=== PATIENT | male | born 1940 | race Hispanic/Latino ===

== ENCOUNTER 2019-03-28 12:21 | Emergency (ER) | payer MEDICARE ==
[~2019-03-28] VITALS: Ht 167.6 cm; Wt 79.4 kg
[~2019-03-28 12:21] MED LIST: ASPIRIN PO; ATENOLOL25 MG PO; ATORVASTATIN CA40 MG PO; RAMIPRIL PO
--- NOTE | 2019-03-28 12:28 | NUR ---
c-collar placed on pt. speaking in full complete sentences and able to make needs known. bleeding controlled
[2019-03-28] MEDS ORDERED: TETANUS/DIPHTHERIA TOX ADULT 0.5 ML SYR IM ONE (12:30)
--- NOTE | 2019-03-28 13:34 | Diagnostic Imaging Report ---
CT BRAIN WO HISTORY: Fall COMPARISON: None. TECHNIQUE: Noncontrast axial scans were obtained from skull base to the vertex. Coronal and sagittal reconstructions obtained from the axial data. One or more of the following dose reduction techniques were used: Automated exposure control, adjustment of the mA and/or kV according to patient size, and/or utilization of iterative reconstruction technique. DISCUSSION: Scalp/Skull: Right frontal scalp/periorbital hematoma is present. No calvarial fracture is seen. Brain sulci: Mildly prominent. Ventricles: Compensatory dilatation. Extra-axial spaces: No masses or fluid collections. Carotid siphon calcifications are present. Parenchyma: Mild bilateral deep white matter hypodensity is likely chronic microvascular ischemic change. Otherwise, no masses, hemorrhage, or large vascular territory acute infarct. Dural sinuses: No abnormal densities. Sellar/Suprasellar region: Intact. Skull base: Intact. Incidental findings: None. IMPRESSION: 1. No acute intracranial abnormalities. 2. Mild supratentorial chronic microvascular ischemic change. Mild generalized cerebral volume loss. Signed by: Dr. Jordan Scott M.D. on 03/28/2019 1:31 PM
--- NOTE | 2019-03-28 13:39 | Diagnostic Imaging Report ---
CT CERVICAL SPINE WO HISTORY: Fall COMPARISON: Concurrent head CT TECHNIQUE: CT of the cervical spine without contrast. Sagittal and coronal reformations were created. One or more of the following dose reduction techniques were used: Automated exposure control, adjustment of the mA and/or kV according to patient size, and/or utilization of iterative reconstruction technique. FINDINGS: Cervical lordosis is straightened. There is no scoliosis or subluxation. No fractures, compression deformity, or destructive osseous lesions are seen. The craniocervical junction is intact. No gross spinal canal masses are seen. The paravertebral and paraspinal soft tissues are unremarkable. There are advanced spondylotic changes from C4-C5 to C6-C7. There is at least mild canal stenosis from C3-C4 to C6-C7 due to posterior disc osteophyte complex. Mild atlantoaxial arthrosis is present as well. Associated multilevel bilateral facet arthrosis is seen. Small tracheal diverticulum is seen along the right tracheoesophageal groove. Mild mosaic attenuation in the upper lungs is partially visualized. Mild bilateral carotid bulb calcified plaque is present. IMPRESSION: No acute osseous abnormalities. Multilevel advanced spondylosis. Signed by: Dr. Jordan Scott M.D. on 03/28/2019 1:35 PM
--- NOTE | 2019-03-28 13:40 | Diagnostic Imaging Report ---
CT MAXIO FAC/PARANAS WO HISTORY: Fall COMPARISON: Concurrent head and cervical spine CT TECHNIQUE: Axial CT images through the face were obtained without contrast. Coronal/sagittal reformations were created. One or more of the following dose reduction techniques were used: Automated exposure control, adjustment of the mA and/or kV according to patient size, and/or utilization of iterative reconstruction technique. DISCUSSION: Superficial right periorbital hematoma is present. No acute fracture is seen. No destructive osseous lesions are seen. The orbits are intact. Both ocular lenses are thinned. Intraorbital contents are otherwise grossly unremarkable. The paranasal sinuses are clear. IMPRESSION: No acute osseous abnormalities in the face. Signed by: Dr. Jordan Scott M.D. on 03/28/2019 2:07 PM
[2019-03-28] MEDS ORDERED: ACETAMINOPHEN/CODEINE 300MG - 30MG TAB PO ONE (14:15)
--- NOTE | 2019-03-28 14:58 | NUR ---
C-COLLAR REMOVED. LABS DRAWN AND SENT OFF. PT DENIES NEED FOR PAIN MEDS
[2019-03-28 15:06] LABS: BASOPHILS % 0.5 % (0.0-1.0); EOSINOPHILS # (AUTO) 0.1 (0.0-0.4); EOSINOPHILS % 1.7 % (0.0-6.0); HEMATOCRIT 45.8 % (38.2-49.6); HEMOGLOBIN 15.5 g/dL (14.0-18.0); LYMPHOCYTES # (AUTO) 1.5 (1.0-3.2); LYMPHOCYTES % 18.8 % (18.0-39.1); MEAN CORPUSCULAR HEMOGLOBIN 32.4 pg (28-32); MEAN CORPUSCULAR HGB CONC 33.8 g/dL (31-35); MEAN CORPUSCULAR VOLUME 95.6 fL (81-99); MONOCYTES # (AUTO) 0.6 (0.2-0.8); MONOCYTES % 7.1 % (4.4-11.3); NEUTROPHILS # (AUTO) 5.8 (2.1-6.9); NEUTROPHILS % 71.5 % (38.7-80.0); PLATELET COUNT 161 x10e3/uL (140-360); RED BLOOD COUNT 4.79 x10e6/uL (4.3-5.7); RED CELL DISTRIBUTION WIDTH 13.6 % (11.7-14.4)
[2019-03-28 15:24] LABS: ALANINE AMINOTRANSFERASE 25 IU/L (0-55); ALBUMIN 4.1 g/dL (3.5-5.0); ALBUMIN/GLOBULIN RATIO 1.2 (0.8-2.0); ALKALINE PHOSPHATASE 86 IU/L (40-150); ANION GAP 14.6 mmol/L (8-16); BLOOD UREA NITROGEN 14 mg/dL (7-26); BUN/CREATININE RATIO 13 (6-25); CALCIUM 9.6 mg/dL (8.4-10.2); CARBON DIOXIDE 25 mmol/L (22-29); CHLORIDE 103 mmol/L (98-107); CREATINE KINASE 306 IU/L (30-200); EST GLOMERULAR FILTRATION RATE > 60 ML/MIN (60-); GLUCOSE 112 mg/dL (74-118); POTASSIUM 4.6 mmol/L (3.5-5.1); SODIUM 138 mmol/L (136-145)
--- NOTE | 2019-03-28 15:54 | NUR ---
LAB WAS CALLED TO COME AND RE-DRAW A BLUE TOP ON THIS PT.;SPOKE WITH [facility]
[2019-03-28 16:37] LABS: INR 0.92; PROTHROMBIN TIME 12.8 seconds (11.9-14.5)
[2019-03-28 16:38] LABS: PARTIAL THROMBOPLASTIN TIME 29.5 seconds (23.8-35.5)
== END 2019-03-28 17:37 | disposition home or self-care (01) ==
LOC: ER 12:21
DX: S00.83XA Contusion of other part of head, initial encounter (principal); S05.11XA Contusion of eyeball and orbital tissues, right eye, initial encounter; S00.11XA Contusion of right eyelid and periocular area, initial encounter; W01.198A Fall on same level from slipping, tripping and stumbling with subsequent striking against other object, initial encounter; Y93.89 Activity, other specified; Y92.018 Other place in single-family (private) house as the place of occurrence of the external cause; S01.81XA Laceration without foreign body of other part of head, initial encounter; S01.411A Laceration without foreign body of right cheek and temporomandibular area, initial encounter; I10 Essential (primary) hypertension; E78.5 Hyperlipidemia, unspecified; Z95.1 Presence of aortocoronary bypass graft; Z95.810 Presence of automatic (implantable) cardiac defibrillator; Z90.49 Acquired absence of other specified parts of digestive tract
CPT/HCPCS: 36415; 70450; 70486; 72125; 80053; 82550; 82553; 84484; 85025; 85610; 85730; 90471; 90714; 93005; 99284

== ENCOUNTER 2021-01-18 17:42 | Emergency (ER) | payer OTHER, MEDICARE ==
[~2021-01-18] VITALS: Ht 167.6 cm; Wt 79.4 kg
[2021-01-18] MEDS ORDERED: HYDROCODONE/APAP 10MG-325MG TAB PO ONE (18:00)
[2021-01-18] MEDS ORDERED: HYDROCODON-ACE1 EAC9 PO (19:31)
[2021-01-18] MEDS ORDERED: NAPROXEN250 MG PO (19:31)
[2021-01-19] MEDS ORDERED: BACITRACIN ZINC 15 GM OINT TOP SCH (09:00)
== END 2021-01-18 20:02 | disposition home or self-care (01) ==
LOC: ER 17:47
DX: R07.89 Other chest pain (principal); S20.211A Contusion of right front wall of thorax, initial encounter; S50.311A Abrasion of right elbow, initial encounter; S40.011A Contusion of right shoulder, initial encounter; V19.3XXA Pedal cyclist (driver) (passenger) injured in unspecified nontraffic accident, initial encounter; Y93.55 Activity, bike riding; Y92.488 Other paved roadways as the place of occurrence of the external cause; I10 Essential (primary) hypertension; E78.5 Hyperlipidemia, unspecified; I25.10 Atherosclerotic heart disease of native coronary artery without angina pectoris; Z95.810 Presence of automatic (implantable) cardiac defibrillator; Z95.1 Presence of aortocoronary bypass graft
CPT/HCPCS: 71101; 99284

== ENCOUNTER → 2024-12-08 | Outpatient (REF) | payer MEDICARE ==
[~2024-12-08] MED LIST changes: +ALTACE5 MG PO; +ASPIRIN81 MG PO; +AVODART0.5 MG PO; +FLOMAX0.4 MG PO; +HYDROCODON-ACE1 EAC9 PO; +NAPROXEN250 MG PO; +SYNTHROID25 MCG PO
[2024-12-08 12:05] LABS: BASOPHILS % 0.8 % (0.0-1.0); EOSINOPHILS # (AUTO) 0.2 (0.0-0.4); EOSINOPHILS % 3.3 % (0.0-6.0); HEMOGLOBIN 15.5 g/dL (14.0-18.0); LYMPHOCYTES # (AUTO) 1.6 (1.0-3.2); LYMPHOCYTES % 32.9 % (18.0-39.1); MEAN CORPUSCULAR HEMOGLOBIN 31.6 pg (28-32); MEAN CORPUSCULAR HGB CONC 34.4 g/dL (31-35); MEAN CORPUSCULAR VOLUME 91.6 fL (81-99); MONOCYTES # (AUTO) 0.5 (0.2-0.8); MONOCYTES % 10.6 % (4.4-11.3); NEUTROPHILS # (AUTO) 2.6 (2.1-6.9); NEUTROPHILS % 52.2 % (38.7-80.0); PLATELET COUNT 153 x10e3/uL (140-360); RED BLOOD COUNT 4.91 x10e6/uL (4.3-5.7); RED CELL DISTRIBUTION WIDTH 13.2 % (11.7-14.4); WHITE BLOOD COUNT 4.89 x10e3/uL (4.8-10.8)
== END ==
LOC: LAB 08:00 → EDSTATUS 12-14 11:30
PROVIDERS: ATTEND Internal Medicine Gastroenterology
DX: R10.32 Left lower quadrant pain (principal); Z01.812 Encounter for preprocedural laboratory examination; Z01.810 Encounter for preprocedural cardiovascular examination; Z86.0100 Personal history of colon polyps, unspecified; I10 Essential (primary) hypertension; Z87.891 Personal history of nicotine dependence
CPT/HCPCS: 36415; 85025; 93005

== ENCOUNTER → 2025-03-08 | Day surgery (SDC) | payer MEDICARE ==
[2025-03-05 15:11] LABS: BASOPHILS % 0.6 % (0.0-1.0); EOSINOPHILS % 3.0 % (0.0-6.0); LYMPHOCYTES % 33.7 % (18.0-39.1); MONOCYTES % 9.9 % (4.4-11.3); NEUTROPHILS % 52.6 % (38.7-80.0); RED CELL DISTRIBUTION WIDTH 13.5 % (11.7-14.4)
[~2025-03-08] MED LIST changes: +LACTATED RINGER'S 1,000 ML ONE; +PROPOFOL IV EMULSION 10 MG/ML 20 ML VIAL ONE
[2025-03-08 10:25] VITALS: TEMP 98.9
[2025-03-08 11:10] VITALS: BP 161/79; PULSE 64; RESP 16; O2SAT 98
== END | disposition home or self-care (01) ==
LOC: OR 06:31
PROVIDERS: ATTEND Internal Medicine Gastroenterology
DX: D12.2 Benign neoplasm of ascending colon (principal); K57.30 Diverticulosis of large intestine without perforation or abscess without bleeding; K64.8 Other hemorrhoids; I10 Essential (primary) hypertension; I25.2 Old myocardial infarction; Z01.812 Encounter for preprocedural laboratory examination; Z87.891 Personal history of nicotine dependence; Z68.31 Body mass index [BMI] 31.0-31.9, adult; Z79.82 Long term (current) use of aspirin; Z79.890 Hormone replacement therapy
CPT/HCPCS: 36415; 45385; 85025; 88305; J2704; J7121